=== PATIENT | female | born 1985 | race Caucasian/White ===

== ENCOUNTER 2020-01-30 06:24 | Inpatient (IN) | payer OTHER ==
[2020-01-30 06:48] LABS: Basophils % (A) 0 %; Eosinophils # (A) 0.1 k/uL (0-0.7); Eosinophils % (A) 2 %; HCT 40.1 % (34.0-46.0); HGB 13.7 gm/dL (11.4-16.0); Lymphocytes # (A) 1.5 k/uL (1.0-4.8); Lymphocytes % (A) 19 %; MCH 30.9 pg (25.0-35.0); MCHC 34.1 g/dL (31.0-37.0); MCV 90.6 fL (80.0-100.0); Mean Platelet Volume 7.9; Monocytes # (A) 0.3 k/uL (0-1.0); Monocytes % (A) 4 %; Neutrophils # (A) 5.8 k/uL (1.3-7.7); Neutrophils % (A) 74 %; Platelet Count 155 k/uL (150-450); RBC 4.43 m/uL (3.80-5.40); RDW 12.2 % (11.5-15.5); WBC 7.8 k/uL (3.8-10.6)
[2020-01-30] MEDS ORDERED: LORazepam 2 MG/ML INJ IV STA (06:55)
[2020-01-30 07:03] LABS: Amphetamine Screen,Urine Detected (NotDetected); Barbiturate Screen,Urine Not Detected (NotDetected); Benzodiazepines Screen,Urine Not Detected (NotDetected); Cocaine Screen,Urine Not Detected (NotDetected); Methadone Screen, Urine Not Detected (NotDetected); Opiate Screen,Urine Not Detected (NotDetected); Oxycodone Screen, Urine Not Detected (NotDetected); Phencyclidine Screen,Urine Not Detected (NotDetected); Tricyclic Antidepressant,Urine Not Detected (NotDetected); Urn Cannabinoid Scrn Not Detected (NotDetected)
[2020-01-30 07:04] LABS: Acetaminophen <10.0 ug/mL; African American GFR (CKD) >90 (>60 ml/min/1.73 sqM); Albumin 4.5 g/dL (3.5-5.0); Alcohol <10 mg/dL; Anion Gap 7 mmol/L; Calcium 8.9 mg/dL (8.4-10.2); Carbon Dioxide 26 mmol/L (22-30); Chloride 94 mmol/L (98-107); Glucose 98 mg/dL (74-99); Non-African American GFR(CKD) >90 (>60 ml/min/1.73 sqM); Salicylate <1.0 mg/dL; Sodium 127 mmol/L (137-145); Total Bilirubin 1.8 mg/dL (0.2-1.3); Total Protein 7.1 g/dL (6.3-8.2)
[2020-01-30 07:07] LABS: ALT 28 U/L (4-34); AST 50 U/L (14-36); Alkaline Phosphatase 52 U/L (38-126); Blood Urea Nitrogen 4 mg/dL (7-17)
--- NOTE | 2020-01-30 07:08 | ED ---
General Adult HPI <Gomez Thomas - Last Filed: 01/30/20 11:43> - General Source: patient, EMS Mode of arrival: EMS Limitations: altered mental status - History of Present Illness -: unknown Consistency: constant Improves with: none Worsens with: none Treatments Prior to Arrival: none <Jim Graham - Last Filed: 02/02/20 06:33> - General Chief complaint: Psychiatric Symptoms Stated complaint: Mental health Time Seen by Provider: 01/30/20 06:26 - History of Present Illness Initial comments: This patient is a 34-year-old woman who is brought by EMS to be evaluated for what she reportedly told him was bladder pain. When I see the patient, she is agitated and is not giving any history. The patient reportedly is staying at her mother's home here in town, but appears to live in [facility]. She comes in with a bag that contains multiple prescription bottles that are from [place]. (Jim Graham) - Related Data Home Medications Medication Instructions Recorded Confirmed ARIPiprazole [Abilify] 5 mg PO DAILY 01/30/20 01/30/20 Dextroamphetamine/Amphetamine 20 mg PO BID@0800,1200 01/30/20 01/30/20 [Adderall] Gabapentin [Neurontin] 900 mg PO HS 01/30/20 01/30/20 Levonorgestrel-Ethin Estradiol 1 tab PO DAILY 01/30/20 01/30/20 [Levora-28 Tablet] Levothyroxine Sodium [Synthroid] 75 mcg PO DAILY 01/30/20 01/30/20 OXcarbazepine [Trileptal] 300 mg PO BID 01/30/20 01/30/20 Zolpidem Tartrate [Ambien Cr] 12.5 mg PO HS 01/30/20 01/30/20 clonazePAM [KlonoPIN] 0.5 mg PO TID 01/30/20 01/30/20 Allergies Allergy/AdvReac Type Severity Reaction Status Date / Time bacitracin Allergy Itching Verified 01/30/20 18:27 [From Neosporin Plus] lidocaine Allergy Itching Verified 01/30/20 18:27 [From Neosporin Plus] neomycin Allergy Itching Verified 01/30/20 18:27 [From Neosporin Plus] polymyxin B Allergy Itching Verified 01/30/20 18:27 [From Neosporin Plus] pramoxine Allergy Itching Verified 01/30/20 18:27 [From Neosporin Plus] Review of Systems ROS Other: All systems not noted in ROS Statement are negative. <Gomez Thomas - Last Filed: 01/30/20 11:43> ROS Other: All systems not noted in ROS Statement are negative. Limitations: ROS unobtainable due to patients medical condition <NicolasJim rinaldi - Last Filed: 02/02/20 06:33> ROS Statement: Those systems with pertinent positive or pertinent negative responses have been documented in the HPI. Past Medical History Past Medical History: Unable to Obtain History of Any Multi-Drug Resistant Organisms: None Reported Past Surgical History: Unable to Obtain - Past Family History Father Family Medical History: No Reported History Mother Family Medical History: No Reported History <NicolasJim rinaldi - Last Filed: 02/02/20 06:33> General Exam Limitations: no limitations General appearance: alert, anxious Head exam: Present: atraumatic, normocephalic Eye exam: Present: normal appearance, PERRL, EOMI. Absent: scleral icterus, conjunctival injection ENT exam: Present: normal oropharynx Neck exam: Present: normal inspection, full ROM Respiratory exam: Present: normal lung sounds bilaterally. Absent: respiratory distress, wheezes, rales, rhonchi, stridor, chest wall tenderness Cardiovascular Exam: Present: regular rate, normal rhythm, normal heart sounds. Absent: systolic murmur, diastolic murmur, rubs, gallop GI/Abdominal exam: Present: soft, normal bowel sounds. Absent: distended, tenderness, guarding, rebound, mass, pulsatile mass, hernia Extremities exam: Present: normal inspection, normal capillary refill. Absent: pedal edema, calf tenderness Back exam: Present: normal inspection. Absent: CVA tenderness (R), CVA tenderness (L) Neurological exam: Present: alert, CN II-XII intact. Absent: motor sensory deficit Skin exam: Present: warm, dry, intact, normal color. Absent: rash <SantosJim - Last Filed: 02/02/20 06:33> Course <Gomez Thomas Catrachito - Last Filed: 01/30/20 11:43> Vital Signs 01/30/20 01/30/20 01/30/20 06:25 09:00 10:00 Temperature 97.6 F Pulse Rate 80 Respiratory 16 18 18 Rate Blood Pressure 103/79 O2 Sat by Pulse 100 Oximetry 01/30/20 01/30/20 01/30/20 11:00 11:26 12:00 Temperature 97.6 F Pulse Rate 61 61 Respiratory 18 18 18 Rate Blood Pressure 111/78 111/78 O2 Sat by Pulse 100 100 Oximetry - Reevaluation(s) Reevaluation #1: 01/30/20 09:17 Patient presents with suspected drug overdose, Tylenol overdose of approximately 5 g, Tylenol level is negative 2. Case was discussed with poison control. She did have some urinary retention likely secondary to amphetamine use. After initial dose of benzodiazepine, patient is alert, calm, cooperative. She does state this was a suicide attempt. She has been medically cleared at 0920 for EPS evaluation. (Gomez Thomas) EKG Findings - EKG Results: EKG: interpreted by DEEPTI COLLAZO, sinus rhythm (Rate 61 bpm), normal axis, normal QRS, normal ST/T, no acute changes <Jim Graham - Last Filed: 02/02/20 06:33> Medical Decision Making - Lab Data Result diagrams: 01/30/20 06:40 01/30/20 08:14 <Gomez Thomas - Last Filed: 01/30/20 11:43> - Lab Data Result diagrams: 01/31/20 10:51 01/31/20 10:51 <Jim Graham - Last Filed: 02/02/20 06:33> - Medical Decision Making 34-year-old with suicidal attempt, agitation, and amphetamine overdose. Patient states he does admit to suicidal attempt. She has been medically cleared with negative Tylenol 2. She was evaluated by EPS and felt to require inpatient psychiatric evaluation treatment. She will be admitted to this institution. I did complete a clinical certification on this patient. (Gomez Thomas) - Lab Data Lab Results 01/30/20 01/30/20 01/30/20 Range/Units 06:40 06:40 06:40 WBC 7.8 (3.8-10.6) k/uL RBC 4.43 (3.80-5.40) m/uL Hgb 13.7 (11.4-16.0) gm/dL Hct 40.1 (34.0-46.0) % MCV 90.6 (80.0-100.0) fL MCH 30.9 (25.0-35.0) pg MCHC 34.1 (31.0-37.0) g/dL RDW 12.2 (11.5-15.5) % Plt Count 155 (150-450) k/uL Neutrophils % 74 % Lymphocytes % 19 % Monocytes % 4 % Eosinophils % 2 % Basophils % 0 % Neutrophils # 5.8 (1.3-7.7) k/uL Lymphocytes # 1.5 (1.0-4.8) k/uL Monocytes # 0.3 (0-1.0) k/uL Eosinophils # 0.1 (0-0.7) k/uL Basophils # 0.0 (0-0.2) k/uL Sodium (137-145) mmol/L Potassium (3.5-5.1) mmol/L Chloride (98-107) mmol/L Carbon Dioxide (22-30) mmol/L Anion Gap mmol/L BUN (7-17) mg/dL Creatinine (0.52-1.04) mg/dL Est GFR (CKD-EPI)AfAm (>60 ml/min/1.73 sqM) Est GFR (CKD-EPI)NonAf (>60 ml/min/1.73 sqM) Glucose (74-99) mg/dL Calcium (8.4-10.2) mg/dL Total Bilirubin (0.2-1.3) mg/dL AST (14-36) U/L ALT (4-34) U/L Alkaline Phosphatase (38-126) U/L Total Protein (6.3-8.2) g/dL Albumin (3.5-5.0) g/dL Urine HCG, Qual Not Detected (Not Detectd) Salicylates mg/dL Urine Opiates Screen Not Detected (NotDetected) Ur Oxycodone Screen Not Detected (NotDetected) Urine Methadone Screen Not Detected (NotDetected) Ur Propoxyphene Screen Not Detected (NotDetected) Acetaminophen ug/mL Ur Barbiturates Screen Not Detected (NotDetected) U Tricyclic Antidepress Not Detected (NotDetected) Ur Phencyclidine Scrn Not Detected (NotDetected) Ur Amphetamines Screen Detected H (NotDetected) U Methamphetamines Scrn Not Detected (NotDetected) U Benzodiazepines Scrn Not Detected (NotDetected) Urine Cocaine Screen Not Detected (NotDetected) U Marijuana (THC) Screen Not Detected (NotDetected) Serum Alcohol mg/dL 01/30/20 01/30/20 Range/Units 06:40 08:14 WBC (3.8-10.6) k/uL RBC (3.80-5.40) m/uL Hgb (11.4-16.0) gm/dL Hct (34.0-46.0) % MCV (80.0-100.0) fL MCH (25.0-35.0) pg MCHC (31.0-37.0) g/dL RDW (11.5-15.5) % Plt Count (150-450) k/uL Neutrophils % % Lymphocytes % % Monocytes % % Eosinophils % % Basophils % % Neutrophils # (1.3-7.7) k/uL Lymphocytes # (1.0-4.8) k/uL Monocytes # (0-1.0) k/uL Eosinophils # (0-0.7) k/uL Basophils # (0-0.2) k/uL Sodium 127 L 130 L (137-145) mmol/L Potassium 6.0 H 4.0 (3.5-5.1) mmol/L Chloride 94 L 99 (98-107) mmol/L Carbon Dioxide 26 24 (22-30) mmol/L Anion Gap 7 7 mmol/L BUN 4 L 4 L (7-17) mg/dL Creatinine 0.44 L 0.43 L (0.52-1.04) mg/dL Est GFR (CKD-EPI)AfAm >90 >90 (>60 ml/min/1.73 sqM) Est GFR (CKD-EPI)NonAf >90 >90 (>60 ml/min/1.73 sqM) Glucose 98 92 (74-99) mg/dL Calcium 8.9 8.7 (8.4-10.2) mg/dL Total Bilirubin 1.8 H 0.8 (0.2-1.3) mg/dL AST 50 H 26 (14-36) U/L ALT 28 22 (4-34) U/L Alkaline Phosphatase 52 52 (38-126) U/L Total Protein 7.1 5.7 L (6.3-8.2) g/dL Albumin 4.5 3.6 (3.5-5.0) g/dL Urine HCG, Qual (Not Detectd) Salicylates <1.0 mg/dL Urine Opiates Screen (NotDetected) Ur Oxycodone Screen (NotDetected) Urine Methadone Screen (NotDetected) Ur Propoxyphene Screen (NotDetected) Acetaminophen <10.0 <10.0 ug/mL Ur Barbiturates Screen (NotDetected) U Tricyclic Antidepress (NotDetected) Ur Phencyclidine Scrn (NotDetected) Ur Amphetamines Screen (NotDetected) U Methamphetamines Scrn (NotDetected) U Benzodiazepines Scrn (NotDetected) Urine Cocaine Screen (NotDetected) U Marijuana (THC) Screen (NotDetected) Serum Alcohol <10 mg/dL Disposition Is patient prescribed a controlled substance at d/c from ED?: No Decision to Admit Reason: Admit from EC Decision Date: 01/30/20 Decision Time: 11:44 <Gomez Thomas - Last Filed: 01/30/20 11:43> Is patient prescribed a controlled substance at d/c from ED?: No <Jim Graham - Last Filed: 02/02/20 06:33> Clinical Impression: Suicidal ideation, Attempted suicide, Depression Disposition: ADMITTED IP TO THIS [facility] Condition: Stable
[2020-01-30] MEDS ORDERED: SODIUM CHLORIDE 0.9% 500 ML 500 ML IV ONE (07:18)
[2020-01-30 08:31] LABS: ALT 22 U/L (4-34); AST 26 U/L (14-36); Acetaminophen <10.0 ug/mL; African American GFR (CKD) >90 (>60 ml/min/1.73 sqM); Albumin 3.6 g/dL (3.5-5.0); Alkaline Phosphatase 52 U/L (38-126); Anion Gap 7 mmol/L; Blood Urea Nitrogen 4 mg/dL (7-17); Calcium 8.7 mg/dL (8.4-10.2); Carbon Dioxide 24 mmol/L (22-30); Chloride 99 mmol/L (98-107); Glucose 92 mg/dL (74-99); Non-African American GFR(CKD) >90 (>60 ml/min/1.73 sqM); Sodium 130 mmol/L (137-145); Total Bilirubin 0.8 mg/dL (0.2-1.3); Total Protein 5.7 g/dL (6.3-8.2)
[2020-01-30] MEDS: SODIUM CHLORIDE 0.9% 1,000 ML IV SCH (08:42)
[2020-01-30] MEDS ORDERED: ACETAMINOPHEN TAB 325 MG TAB PO PRN (11:51)
[2020-01-30] MEDS ORDERED: MAG HYDROX/AL HYDROX/SIMETH 30 ML CUP PO PRN (11:51)
[2020-01-30] MEDS ORDERED: LORazepam 1 MG TAB PO PRN (11:51)
[2020-01-30] MEDS ORDERED: MAGNESIUM HYDROXIDE 2,400 MG/10 ML CUP PO PRN (11:51)
[2020-01-30] MEDS ORDERED: LORazepam 2 MG/ML INJ IM PRN (11:54)
[2020-01-30] MEDS: GABAPENTIN 400 MG CAP PO SCH (13:43)
[2020-01-30] MEDS: OXcarbazepine 300 MG TAB PO SCH ×2 (13:43→20:40)
[2020-01-30] MEDS: OLANZapine 2.5 MG TAB PO SCH (13:44)
--- NOTE | 2020-01-30 18:43 | P.HPMEDMHU ---
History of Present Illness H&P Date: 01/30/20 Chief Complaint: confusion This is a 34-year-old female with a history of anxiety and hypothyroidism who has been admitted to the mental health unit for possible suicide attempt. Initially when seen in the ER the patient having complaining of bladder pain. Patient seen and examined. She denies any abdominal pain, nausea, vomiting, or dysuria. She denies any fevers or flus. She states that the psychiatrist wants to wean her off of her gabapentin and Klonopin. She is willing to do this. She is slightly nervous to take Zyprexa as it has caused suicidal ideation the past. Review of Systems Pertinent positives and negatives as discussed in HPI, a complete review of systems was performed and all other systems are negative. Past Medical History Past Medical History: Thyroid Disorder History of Any Multi-Drug Resistant Organisms: None Reported Additional Past Surgical History / Comment(s): Right lateral meniscus Past Psychological History: Anxiety Smoking Status: Never smoker Past Alcohol Use History: None Reported Past Drug Use History: None Reported - Past Family History Father Family Medical History: No Reported History Mother Family Medical History: No Reported History Medications and Allergies Home Medications Medication Instructions Recorded Confirmed Type ARIPiprazole [Abilify] 5 mg PO DAILY 01/30/20 01/30/20 History Dextroamphetamine/Amphetamine 20 mg PO BID@0800,1200 01/30/20 01/30/20 History [Adderall] Gabapentin [Neurontin] 900 mg PO HS 01/30/20 01/30/20 History Levonorgestrel-Ethin Estradiol 1 tab PO DAILY 01/30/20 01/30/20 History [Levora-28 Tablet] Levothyroxine Sodium [Synthroid] 75 mcg PO DAILY 01/30/20 01/30/20 History OXcarbazepine [Trileptal] 300 mg PO BID 01/30/20 01/30/20 History Zolpidem Tartrate [Ambien Cr] 12.5 mg PO HS 01/30/20 01/30/20 History clonazePAM [KlonoPIN] 0.5 mg PO TID 01/30/20 01/30/20 History Allergies Allergy/AdvReac Type Severity Reaction Status Date / Time bacitracin Allergy Itching Verified 01/30/20 18:27 [From Neosporin Plus] lidocaine Allergy Itching Verified 01/30/20 18:27 [From Neosporin Plus] neomycin Allergy Itching Verified 01/30/20 18:27 [From Neosporin Plus] polymyxin B Allergy Itching Verified 01/30/20 18:27 [From Neosporin Plus] pramoxine Allergy Itching Verified 01/30/20 18:27 [From Neosporin Plus] Physical Exam Osteopathic Statement: *. No significant issues noted on an osteopathic structural exam other than those noted in the History and Physical/Consult. Vitals: Vital Signs Temp Pulse Pulse Resp BP BP Pulse Ox 01/30/20 12:18 96.6 F L 89 16 127/72 100 01/30/20 12:00 97.6 F 61 18 111/78 100 01/30/20 11:26 61 18 111/78 100 01/30/20 11:00 18 01/30/20 10:00 18 01/30/20 09:00 18 01/30/20 06:25 97.6 F 80 16 103/79 100 Intake and Output 01/30/20 01/30/20 01/30/20 06:59 14:59 22:59 Output Total 697 Balance -697 Output: Post Void Residual 697 Other: Weight 77.111 kg General: non toxic, no distress, appears at stated Derm: warm, dry Head: atraumatic, normocephalic, symmetric Eyes: EOMI, no lid lag, anicteric sclera, pupils equal round reactive to light ENT: Nose and ears atraumatic, no thrush, no pharyngeal erythema Neck: No thyromegaly, no cervical lymphadenopathy, trachea midline, supple Mouth: no lip lesion, mucus membranes moist Cardiovascular: S1S2 reg, no murmur, positive posterior tibial pulse bilateral, no edema, capillary refill less than 2 seconds Lungs: clear to ascultation bilateral, no ronchi, no rales, no wheeze, no accessory muscle use Abdominal: soft, nontender to palpation, no guarding, no appreciable organomegaly, normal bowel sounds Ext: no gross muscle atrophy, muscle strength muscle strength 5 out of 5 in all 4 extremities, no contractures Neuro: CN II-XII grossly intact, light touch intact all 4 extremities, finger to nose within normal limits, Psych: Alert, oriented, flat affect slowed thinking Cranial Nerve Examination - Cranial Nerves Cranial Nerve II- Optic: Intact Cranial Nerve III- Oculomotor: Intact Cranial Nerve IV- Trochlear: Intact Cranial Nerve V- Trigeminal: Intact Cranial Nerve - Abducens: Intact Cranial Nerve VII- Facial: Intact Cranial Nerve VIII- Auditory: Intact Cranial Nerve IX- Glossopharyngeal: Intact Cranial Nerve X- Vagus: Intact Cranial Nerve XI- Accessory: Intact Cranial Nerve XII- Hypoglossal: Intact Results CBC & Chem 7: 01/30/20 06:40 01/30/20 08:14 Labs: Abnormal Lab Results - Last 24 Hours (Table) 01/30/20 01/30/20 01/30/20 Range/Units 06:40 06:40 08:14 Sodium 127 L 130 L (137-145) mmol/L Potassium 6.0 H (3.5-5.1) mmol/L Chloride 94 L (98-107) mmol/L BUN 4 L 4 L (7-17) mg/dL Creatinine 0.44 L 0.43 L (0.52-1.04) mg/dL Total Bilirubin 1.8 H (0.2-1.3) mg/dL AST 50 H (14-36) U/L Total Protein 5.7 L (6.3-8.2) g/dL Ur Amphetamines Screen Detected H (NotDetected) Assessment and Plan Assessment: Hypothyroidism - Synthroid - Recheck TSH Hyponatremia - encourage oral intake - repeat BMP in AM Hyperkalemia - resolved Depression - your psych management Thank you for allowing us to participate in the care of this pleasant patient. Do not hesitate to contact us with questions. Someone can be reached from the [facility] hospitalist group all hours of the day at [phone] or via perfect serve.
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
[2020-01-30] MEDS: OLANZapine 5 MG TAB PO SCH (20:40)
[2020-01-30] MEDS ORDERED: ZOLPIDEM 5 MG TAB PO PRN (21:00)
[2020-01-30] MEDS ORDERED: OXcarbazepine 300 MG TAB PO SCH (21:00)
[2020-01-31] MEDS: LEVOTHYROXINE 75 MCG TAB PO SCH (07:00)
[2020-01-31] MEDS: SODIUM CHLORIDE 0.9% 1,000 ML IV SCH (07:21)
[2020-01-31] MEDS: OLANZapine 2.5 MG TAB PO SCH ×2 (09:16→14:44)
[2020-01-31] MEDS: OXcarbazepine 300 MG TAB PO SCH ×2 (09:16→20:44)
[2020-01-31] MEDS: GABAPENTIN 400 MG CAP PO SCH (09:16)
[2020-01-31] MEDS: LEVONORGESTREL ETHIN ESTRADIOL PO SCH (09:41)
[2020-01-31 11:18] LABS: Basophils % (A) 1 %; Eosinophils # (A) 0.1 k/uL (0-0.7); Eosinophils % (A) 1 %; HCT 44.1 % (34.0-46.0); HGB 14.1 gm/dL (11.4-16.0); Lymphocytes # (A) 1.5 k/uL (1.0-4.8); Lymphocytes % (A) 20 %; MCH 30.3 pg (25.0-35.0); MCV 94.7 fL (80.0-100.0); Mean Platelet Volume 7.2; Monocytes # (A) 0.4 k/uL (0-1.0); Monocytes % (A) 5 %; Neutrophils # (A) 5.2 k/uL (1.3-7.7); Neutrophils % (A) 72 %; Platelet Count 179 k/uL (150-450); RBC 4.66 m/uL (3.80-5.40); RDW 12.5 % (11.5-15.5); WBC 7.2 k/uL (3.8-10.6)
[2020-01-31 11:28] LABS: Sodium 135 mmol/L (137-145)
[2020-01-31 11:29] LABS: ALT 24 U/L (4-34); AST 27 U/L (14-36); African American GFR (CKD) >90 (>60 ml/min/1.73 sqM); Albumin 3.9 g/dL (3.5-5.0); Alkaline Phosphatase 61 U/L (38-126); Anion Gap 5 mmol/L; Blood Urea Nitrogen 12 mg/dL (7-17); Calcium 8.9 mg/dL (8.4-10.2); Carbon Dioxide 29 mmol/L (22-30); Chloride 101 mmol/L (98-107); Cholesterol 142 mg/dL (<200); Glucose 78 mg/dL (74-99); HDL Cholesterol 68 mg/dL (40-60); LDL Cholesterol,Calculated 63 mg/dL (0-99); Non-African American GFR(CKD) >90 (>60 ml/min/1.73 sqM); Potassium 4.2 mmol/L (3.5-5.1); Total Bilirubin 0.5 mg/dL (0.2-1.3); Total Protein 6.1 g/dL (6.3-8.2); Triglycerides 53 mg/dL (<150)
--- NOTE | 2020-01-31 11:56 | PN ---
PROGRESS NOTE DATE OF SERVICE: 01/31/2020. CHIEF COMPLAINT: The patient felt "overwhelmed" with family stress issues. She has had traumatic experiences, which continued to plague her. She reported overdosing on 8-10 Tylenol. INTERVAL HISTORY: Patient has been doing fair. She had a quiet evening last night. She comes out in the day area. She will wander around. She did attend a group yesterday. She will interact some with others, though mostly she keeps to herself. She says she says she slept well last night. Today she has been up. She complains of a fair amount of anxiety and some confusion in her thinking. Its noteworthy that today she said she did not overdose on any Tylenol. She noted her blood level for Tylenol was not elevated. She said when she arrived at the ED, they understood her as having overdosed. She seemed to offer the idea that her mother believed she had overdosed as the reason mother called EMS. On the other hand, the patient was not able to offer anymore information about this issue or factors relating to her admission. She relates that all to a lot of family stress, though she really does not clarify what the issues are. She does note that her mother and brother have traveled from [place] to [place] to visit the maternal grandpa. Her maternal grandmother had been here for 2 weeks. The plan was for the family to return to [place]. She says that she has been calling her mother and has not gotten answers so she feels even confused about whether the mother and brother still in town or whether they have left. She also has had a lot of sense of confusion about treatment. She says she worries about her Zyprexa, though she acknowledges that she thinks it has been helping her. She has been cooperative with care. She has a moderate amount of anxiety in tends to have difficulty keeping her thoughts straight. She tolerates her psychotropic medications. MENTAL STATUS: Patient was moderately restless. She gave fairly good eye contact. She answered questions with brief responses. She tended to be quite circular and would ask questions over and over. One example was that she was allowed to sign in voluntarily though she probably asked 5-10 times if she had to go to court or not. Generally she could be brought on track to follow the conversation. Her affect was anxious. She was moderately depressed. She was significantly distressed. There was no indication of thought disorder. She voiced no thoughts of harm. Cognition was clear. ASSESSMENT: I will continue the current diagnosis and treatment plan. I had an extensive discussion with the patient regarding withdrawal issues. We will continue to focus on just using the Zyprexa as needed to help ameliorate early withdrawal symptoms. I discussed that longer-term issues regarding anxiety and mood problems need to be deferred at least beyond 6 weeks. Also any stress issues she is feeling related to family stuff are not likely to be addressed for her in terms of any kind of therapy intervention until her thinking process is clear from early withdrawal. I indicated to the patient that any of the problems that she is experiencing right now would be attributed to withdrawal issues and not longer-term factors. I will have the patient sign in voluntarily. We will focus on stabilization and discharge planning. JULIAN / RACQUEL: [id number] / [id number]
[2020-01-31] MEDS: OLANZapine 5 MG TAB PO SCH (20:44)
[2020-02-01] MEDS: LEVOTHYROXINE 75 MCG TAB PO SCH ×2 (06:44→09:40)
[2020-02-01 09:09] LABS: Hemoglobin A1C 5.1 % (4.0-6.0)
[2020-02-01] MEDS: LEVONORGESTREL ETHIN ESTRADIOL PO SCH (09:40)
[2020-02-01] MEDS: OLANZapine 2.5 MG TAB PO SCH (09:40)
[2020-02-01] MEDS: OXcarbazepine 300 MG TAB PO SCH ×2 (09:40→20:00)
[2020-02-01] MEDS: GABAPENTIN 400 MG CAP PO SCH (09:40)
[2020-02-01] MEDS ORDERED: OLANZapine 2.5 MG TAB PO ONE (10:00)
--- NOTE | 2020-02-01 10:31 | PN ---
PROGRESS NOTE DATE OF SERVICE: 02/01/2020 CHIEF COMPLAINT: The patient felt "overwhelmed" with family stress issues. She has had traumatic experiences which continue to plague her. She reported overdosing on 8-10 Tylenol. INTERVAL HISTORY: Patient had a quiet evening last night, mostly she stayed in her room. She does not interact much with others. She will come out in the day area and wander about though she does not seem to pay too much attention to things going on around her. She did attend groups yesterday and seemed to do fair with that. She did not say much. She tended to speak with a soft voice. At times she appeared somewhat disorganized. On the other hand, she was able to stay through the whole group. She slept fairly well last night. Today she has continued to be in her bed. She came out for medications. When I saw her this morning, she seemed to be in a very disheveled state. She barely said anything at all. She became tearful a few different times during the interview. She did not appear to be able to organized her thoughts. She acknowledged some feelings of stress, though could not say anything about that. She appears to tolerate her Zyprexa as her primary medication for managing early withdrawal symptoms. MENTAL STATUS: Patient sat with an essentially frozen posture. She did not give any eye contact. There were a few times that she would appear to try to verbalize, though did not seem to be able to get the words out. She answered a few questions with one-word responses, though barely said much at all. At times she would give a little eye contact and have a very distressed look on her face. She walked very slowly. Her affect was constricted. She had a bewildered manner. She was significantly depressed and distressed. It was difficult to assess for thought disorder. It was difficult to assess for thoughts of harm. ASSESSMENT: I will continue the current diagnosis and treatment plan. I will increase Zyprexa to 5 mg 3 times a day. The best I was able to clarify with the patient was that she was not having trouble with sedation with Zyprexa. In regard to sedation, she did seem to be functioning a little better last evening, though is more regressed today. I again reviewed issues relating to withdrawal, which is her primary issue at present. We will continue to focus on stabilization and discharge planning. MMODL / IJN: [id number] /
[2020-02-01] MEDS: OLANZapine 5 MG TAB PO SCH ×2 (16:41→22:02)
[2020-02-01] MEDS: traZODone HCL 50 MG TAB PO SCH ×2 (20:00→20:03)
[2020-02-02] MEDS: LEVOTHYROXINE 75 MCG TAB PO SCH (08:48)
[2020-02-02] MEDS: OLANZapine 5 MG TAB PO SCH (08:48)
[2020-02-02] MEDS: OXcarbazepine 300 MG TAB PO SCH ×2 (08:48→20:25)
[2020-02-02] MEDS: GABAPENTIN 400 MG CAP PO SCH (08:48)
[2020-02-02] MEDS: LEVONORGESTREL ETHIN ESTRADIOL PO SCH (08:49)
[2020-02-02] MEDS ORDERED: OLANZapine 5 MG TAB PO ONE (12:30)
[2020-02-02 13:28] LABS: C. trachomatis,PCR Negative (Neg,Equiv); Chlamydia trachomatis Source Urine; N. gonorrhoeae,PCR Negative (Neg,Equiv); Neisseria Source Urine
--- NOTE | 2020-02-02 15:19 | PN ---
PROGRESS NOTE DATE OF SERVICE: 02/02/2020. CHIEF COMPLAINT: The patient felt "overwhelmed" with family stress issues. She has had traumatic experiences, which continued to plague her. She reported overdosing on 8-10 Tylenol. INTERVAL HISTORY: Patient had a quiet evening last night, mostly she isolated. She does not interact much with others. She stayed in her room a fair amount. She attended 2 groups yesterday. In the 1st group, it was noted that she was withdrawn and showing a blunted response. In the afternoon group, she did verbalize some though continued with a bland affect. She comes out in the day area some, though does not interact with others. She slept 6 hours last night by staff nursing observation. When I asked the patient how she slept, she said she did not sleep, though then was unclear when I noted what the nurses had documented. She declined taking Zyprexa last evening which she seemed to relate to having some paranoid thinking and needing to see the package prior to taking any medication. She did make comments she "felt voices in her body." Today she has mostly been in her room, it is noteworthy that later the morning she was seen by staff and made an indication that she had thoughts of suicide. She says she wanted to harm herself, though could not figure out the means. The patient was unable to verbalize anymore about what her thinking was. She was placed on one-to-one. When I saw the patient, she was not able to say much. Mostly, she seemed to be in a fog. She would make an effort to speak though then would seem to not be able to get words out. She did not communicate anything that was reliable or helpful in terms of assessing her situation. When I asked her about voices, she did seem to indicate she has was having voices currently. She was not able to respond when I asked if she was having auditory hallucinations just prior to coming into the hospital or when she was 1st evaluated in the hospital. She was vague about that. She was also vague about whether or not she had been experiencing hallucinations over the last several weeks or months leading up to her hospitalization. She was able to say that her problems became severe started in August, though again she could not provide any details. She tolerates her psychotropic medications. MENTAL STATUS: Patient sat without restlessness. Eye contact was fair. Psychomotor activity was slowed. Speech was monotone. There was latency in her responses. She had much difficulty even getting any words out. Her affect was flat. She had a bewildered manner. Her mood was depressed. She was significantly distressed. She was reporting auditory hallucinations. She appears to have significant thought blocking. She did make statements about current thoughts that she would harm herself. ASSESSMENT: I will continue the current diagnosis and treatment plan. I will increase Zyprexa to 10 mg 3 times a day. Initial treatment has been focused on managing withdrawal symptoms from Ambien, Klonopin and Adderall. She does appear to be presenting with psychotic symptoms as well. It is noted that in her presentation on admission, she did have significant communication difficulties, which may have been a reflection of underlying thought disorder as well. We will focus on stabilization and discharge planning. JULIAN / RACQUEL: [id number] /
[2020-02-02] MEDS: OLANZapine 10 MG TAB PO SCH ×2 (16:49→21:20)
[2020-02-02] MEDS: traZODone HCL 50 MG TAB PO SCH (20:24)
[2020-02-03] MEDS: LEVONORGESTREL ETHIN ESTRADIOL PO SCH (08:39)
[2020-02-03] MEDS: LEVOTHYROXINE 75 MCG TAB PO SCH (08:39)
[2020-02-03] MEDS: OLANZapine 10 MG TAB PO SCH (08:39)
[2020-02-03] MEDS: GABAPENTIN 400 MG CAP PO SCH (08:39)
[2020-02-03] MEDS: OXcarbazepine 300 MG TAB PO SCH ×2 (08:40→20:59)
[2020-02-03] MEDS ORDERED: traZODone HCL 50 MG TAB PO PRN (13:45)
--- NOTE | 2020-02-03 13:50 | P.PN ---
Progress Note - Text Progress Note Date: 02/03/20 Interval History: Patient was seen with her one-to-one sitter at the bedside and patient was lay ing down in her bed sheets covering her entire body. Patient was approached by typewriter assembly and parts inspector to speak with him in the office however patient refused to wake up and follow typewriter assembly and parts inspector's command. Patientb was nonverbal with typewriter assembly and parts inspector today and according to sitter claims that patient did not say anything today. Patient was not following any commands however looked at typewriter assembly and parts inspector and then turned away and closed her eyes. Mental Status Exam: General Appearance: Patient appears to be stated age is alert, difficult to redirect and uncooperative. Patient was lying down in the bed. Behavior: Patient is calmly laying in bed without any agitated behavior. Speech: Nonverbal Mood/Affect: Nonverbal Suicidality/Homicidality: Nonverbal Perceptions: Unable to assess Though content/process: Unable to assess Memory and concentration: Unable to assess Judgment and insight: Poor Assessment Major depressive disorder Benzodiazepine dependence PTSD Plan: -Patient continues to meet criteria for inpatient psychiatric admission for symptom stabilization and safety. Patient is currently on a petition and certification and awaiting deferral and court date.. -Medications: Decrease Zyprexa to 10 mg daily at bedtime for mood stabilization/insomnia, continue with Trileptal 300 mg twice a day for mood stabilization, decrease trazodone to 50 mg when necessary daily at bedtime. -When necessary Ativan and Geodon for agitation/aggression. -NRT -not needed as patient does not smoke. -SW on board for discharge planning. Encouraged the patient to participate in milieu. Will continue with one-to-one sitter for safety and consider discontinuing tomorrow.
[2020-02-03] MEDS ORDERED: OLANZapine 10 MG TAB PO SCH (21:00)
[2020-02-03] MEDS: ZIPRASIDONE 20 MG VIAL IM PRN (23:05)
[2020-02-04] MEDS: LEVOTHYROXINE 75 MCG TAB PO SCH (08:38)
[2020-02-04] MEDS: LEVONORGESTREL ETHIN ESTRADIOL PO SCH (08:39)
[2020-02-04] MEDS: OXcarbazepine 300 MG TAB PO SCH ×2 (08:39→19:33)
[2020-02-04] MEDS: GABAPENTIN 400 MG CAP PO SCH (08:39)
[2020-02-04] MEDS ORDERED: traZODone HCL 100 MG TAB PO PRN (11:53)
--- NOTE | 2020-02-04 11:53 | P.PN ---
Progress Note - Text Progress Note Date: 02/04/20 Interval History: Patient was seen laying down on her bed this morning with her one-to-one sitter at the bedside. Patient was approached today by com writer and awoken from her sleep and patient slowly turned to com writer and acknowledged him and was directable to speak with com writer in the office. Patient had poor eye contact and poor hygiene and grooming and answered minimal questions today. She repetitively combed her hair back during the encounter. She sat quietly with no bizarre behaviors. Patient did not offer any complaints today. She states that she slept fine and denies any problems with her appetite. When asked about suicidal or homicidal ideations patient did not answer com writer and also did not answer when com writer asked about patient's medications and also any auditory or visual hallucinations. Patient has been taking her medications while on the unit. Mental Status Exam: General Appearance: Patient appears to be stated age is alert, difficult to redirect and uncooperative, improving mildly. Patient appeared to have a disheveled appearance. Behavior: Patient is calmly sitting in the chair without any agitated behavior. Speech: [place], fluent. Mood/Affect: Patient states her mood is "okay", affect is congruent and constricted. Suicidality/Homicidality: Unable to assess Perceptions: Unable to assess Though content/process: [place], logical, poverty of content. Memory and concentration: Unable to assess Judgment and insight: Poor Assessment Major depressive disorder severe, with psychotic features Benzodiazepine dependence PTSD Plan: -Patient continues to meet criteria for inpatient psychiatric admission for symptom stabilization and safety. Patient is currently on a petition and certification and awaiting deferral and court date.. -Medications: Decrease Zyprexa to 5 mg daily at bedtime for mood stabilization/insomnia and cross titration to commence with Prolixin by mouth 2.5 mg twice a day for psychosis/mood stabilization, continue with Trileptal 300 mg twice a day for mood stabilization, increased trazodone to 100 mg when necessary daily at bedtime. -When necessary Ativan and Geodon for agitation/aggression. -NRT -not needed as patient does not smoke. -SW on board for discharge planning. Encouraged the patient to participate in milieu. Will continue with one-to-one sitter for safety and consider discontinuing tomorrow. icebox worker to continue working with patient to sign release of information to contact patient's family for collateral history.
[2020-02-04] MEDS: ZIPRASIDONE 20 MG VIAL IM PRN (17:53)
[2020-02-04] MEDS ORDERED: OLANZapine 5 MG TAB PO SCH (21:00)
[2020-02-05] MEDS: diphenhydrAMINE 50 MG CAP PO ONE ×2 (01:21→01:52)
[2020-02-05] MEDS: ZIPRASIDONE 20 MG VIAL IM PRN (04:46)
[2020-02-05] MEDS ORDERED: LORazepam 2 MG/ML INJ IM STA (04:54)
[2020-02-05 08:48] LABS: African American GFR (CKD) >90 (>60 ml/min/1.73 sqM); Anion Gap 8 mmol/L; Blood Urea Nitrogen 9 mg/dL (7-17); Calcium 8.9 mg/dL (8.4-10.2); Carbon Dioxide 25 mmol/L (22-30); Chloride 100 mmol/L (98-107); Glucose 86 mg/dL (74-99); Non-African American GFR(CKD) >90 (>60 ml/min/1.73 sqM); Potassium 3.6 mmol/L (3.5-5.1); Sodium 133 mmol/L (137-145)
[2020-02-05] MEDS: GABAPENTIN 400 MG CAP PO SCH (08:53)
[2020-02-05] MEDS: LEVONORGESTREL ETHIN ESTRADIOL PO SCH (08:53)
[2020-02-05] MEDS: OXcarbazepine 300 MG TAB PO SCH ×2 (08:53→20:36)
[2020-02-05] MEDS: LEVOTHYROXINE 75 MCG TAB PO SCH (08:53)
[2020-02-05] MEDS ORDERED: LORazepam 2 MG/ML INJ IM PRN (10:45)
--- NOTE | 2020-02-05 11:23 | P.PN ---
Progress Note - Text Progress Note Date: 02/05/20 Interval History: Patient was seen laying down on her bed this morning with her one-to-one sitter at the bedside. Patient turned to senior grant writer when senior grant writer approached her to speak with her however patient turned away and appeared to be disinterested in speaking with senior grant writer. Rawhide Trimmer asked several questions to patient however patient did not reply to any of them and simply looked at him and then turned away. Patient has been taking her medications while on the unit. According to nursing report patient was agitated and appeared to be "sticking her tongue out" repetitively last night and had a difficult time falling asleep and said that she was suicidal last night. Patient required several when necessary medications Mental Status Exam: General Appearance: Patient appears to be stated age is lethargic, difficult to redirect and uncooperative. Patient appeared to have a disheveled appearance. Behavior: Patient is calmly laying in bed without any agitated behavior. Disinterested. Speech: Nonverbal today Mood/Affect: Unable to assess Suicidality/Homicidality: Unable to assess Perceptions: Unable to assess Though content/process: Unable to assess Memory and concentration: Unable to assess Judgment and insight: Poor Assessment Major depressive disorder severe, with psychotic features Benzodiazepine dependence PTSD Plan: -Patient continues to meet criteria for inpatient psychiatric admission for symptom stabilization and safety. Patient is currently on a petition and certification and awaiting deferral and court date.. -Medications: Increased Zyprexa to 7.5 mg daily at bedtime for mood stabilization/insomnia. Increased Prolixin by mouth 3 mg twice a day for psychosis/mood stabilization, continue with Trileptal 300 mg twice a day for mood stabilization, continue with trazodone to 100 mg when necessary daily at bedtime. Added Cogentin 0.5 mg twice a day for EPS prophylaxis. -When necessary Ativan and Geodon for agitation/aggression. -NRT -not needed as patient does not smoke. -SW on board for discharge planning. Encouraged the patient to participate in milieu. Will continue with one-to-one sitter for safety. merchandise worker was able to obtain release of information from patient to speak with her mother and her grandmother and will attempt today to obtain collateral information.
[2020-02-05] MEDS: BENZTROPINE MESYLATE 0.5 MG TAB PO SCH (20:35)
[2020-02-05] MEDS: OLANZapine 2.5 MG TAB PO SCH (20:36)
[2020-02-06] MEDS: LEVONORGESTREL ETHIN ESTRADIOL PO SCH (08:22)
[2020-02-06] MEDS: GABAPENTIN 400 MG CAP PO SCH (08:24)
[2020-02-06] MEDS: OXcarbazepine 300 MG TAB PO SCH ×2 (08:24→20:53)
[2020-02-06] MEDS: LEVOTHYROXINE 75 MCG TAB PO SCH (08:24)
[2020-02-06] MEDS: BENZTROPINE MESYLATE 0.5 MG TAB PO SCH ×2 (08:24→20:54)
--- NOTE | 2020-02-06 12:17 | P.PN ---
Subjective Progress Note Date: 02/06/20 Principal diagnosis: Major depressive disorder severe with psychotic features Benzodiazepine dependence PTSD Subjective no, no, no, Objective patient gives one-word response to everything. No eye contact very little psychomotor activity lying in bed at noon in a dark room Medication we increased Zyprexa to seventh 0.5 daily at bedtime and Prolixin 3 mg twice a day she is also on Trileptal 300 twice a day and trazodone 100 at night plus Cogentin for EPS 0.5 twice a day Vital signs heart rate 65 respiration 18 blood pressure 125/68 Labs: She did have a general chemistry yesterday tends to run low on her sodium is at 133 which for her is group home okay Groups: The patient does not attend I urged her to go to groups so that we could see how she is doing associated fight back against her illness. Staff reported that patient always seems sad does take care of her basic hygiene anxious guarded low energy denies psychotic symptoms denies suicidality or homicidality is withdrawn from peers and staff Assessment patient continues to require hospitalization for safety and medication adjustment we will continue the current medication is Zyprexa 7.5 Prolixin Trileptal and trazodone and when necessary's work with the social workers for discharge planning and strongly encourage patient to participate in the milieu Objective - Vital Signs Vital signs: Vital Signs Temp 97.5 F L 02/04/20 21:07 Pulse 65 02/06/20 06:38 Resp 18 02/06/20 06:38 BP 125/68 02/06/20 06:38 Pulse Ox 97 02/05/20 05:13 - Labs CBC & Chem 7: 01/31/20 10:51 02/05/20 06:29
[2020-02-06 14:18] VITALS: BMI 23.7
[2020-02-06] MEDS: OLANZapine 2.5 MG TAB PO SCH (20:53)
--- NOTE | 2020-02-07 08:29 | P.PN ---
Subjective Progress Note Date: 02/07/20 Principal diagnosis: Major depressive disorder severe with psychotic features Benzodiazepine dependence PTSD Subjective: The patient did a little better than yesterday giving me several word answers although brief. She said she slept okay and kind of shrugged her shoulders the staff since that she slept at least 7 hours says her appetite is okay and that her anxiety is slowly coming down. She denies any hallucinations or delusions and says that she still feels sad and wonders what the point of life is but has no plan. Objective patient has very little psychomotor activity poor eye contact moves slowly no evidence of psychotic responses she is not tearful just sad affect no irritability or anger Vital signs: Temperature 97.9 heart rate 68 respirations 16 blood pressure 118/76 Labs were run on the nothing new since then Medications: The patient takes Neurontin 400 a day, Trileptal 300 twice a day, Cogentin 0.5 twice a day which she says is working she does not have stiffness, Prolixin 3 mg twice a day and olanzapine 7. 5 at night Assessment patient is still needs to be in the hospital is she is depressed cannot commit to safety and is too anxious to function and also needs to have medications adjusted and monitored Plan: No change in medicine Objective - Vital Signs Vital signs: Vital Signs Temp 97.9 F 02/07/20 06:31 Pulse 68 02/07/20 06:31 Resp 16 02/07/20 06:31 BP 118/76 02/07/20 06:31 Pulse Ox 97 02/07/20 06:31 Intake & Output 02/06/20 02/07/20 02/07/20 18:59 06:59 18:59 Weight 75 kg - Labs CBC & Chem 7: 01/31/20 10:51 02/05/20 06:29
[2020-02-07] MEDS: LEVONORGESTREL ETHIN ESTRADIOL PO SCH (08:36)
[2020-02-07] MEDS: OXcarbazepine 300 MG TAB PO SCH ×2 (08:38→21:04)
[2020-02-07] MEDS: BENZTROPINE MESYLATE 0.5 MG TAB PO SCH ×2 (08:38→21:05)
[2020-02-07] MEDS: LEVOTHYROXINE 75 MCG TAB PO SCH (08:38)
[2020-02-07] MEDS: GABAPENTIN 400 MG CAP PO SCH (08:38)
[2020-02-07] MEDS: OLANZapine 2.5 MG TAB PO SCH (21:04)
[2020-02-08] MEDS: BENZTROPINE MESYLATE 0.5 MG TAB PO SCH ×2 (08:14→20:19)
[2020-02-08] MEDS: LEVOTHYROXINE 75 MCG TAB PO SCH (08:14)
[2020-02-08] MEDS: OXcarbazepine 300 MG TAB PO SCH ×2 (08:14→20:18)
[2020-02-08] MEDS: GABAPENTIN 400 MG CAP PO SCH (08:15)
[2020-02-08] MEDS: LEVONORGESTREL ETHIN ESTRADIOL PO SCH (08:15)
--- NOTE | 2020-02-08 11:56 | P.PN ---
Progress Note - Text Progress Note Date: 02/08/20 Interval History: Patient was seen laying down in her bed today with her sitter at the bedside and was directable and agreeable to seek to insurance underwriter sales in the office today. She appears to have poor hygiene still with poor grooming however appeared to be more awake today and less lethargic. She continues to be concrete and have poverty of content. She was asking about potential discharge today however was agreeable to stay longer on the unit. She claims that she did speak with her mother and father over the phone. When asked more about the circumstances of her hospitalization patient continues to state "I don't know what happened" and does not know how long she will be in the area for. She claims that her mood has been gradually improving and denies any anxiety at this time. She states that she was able to go to some groups throughout the weekend. She claims of a fair appetite. At this time patient denies any suicidal or homical ideations, intent or plan. Patient denies any auditory, visual hallucinations. Patient denies any side effects from the medications and has been compliant with meds. Mental Status Exam: General Appearance: Patient appears to be older than stated age is alert, directable, and attempts to becooperative.continues to have poor hygiene and grooming. Behavior: Patient is calmly seated without any agitated behavior. Speech: Patient's speech is fluent and nonpressured. monotone and concrete. Mood/Affect: Mood is improving mildly, affect is congruent and constricted. Suicidality/Homicidality: Patient denies having any suicidal or homicidal ideation intent or plan. Perceptions: Patient denies any visual hallucinations and denies any auditory hallucinations Though content/process: concrete, poverty of content. Logical today. Memory and concentration: AOX3, grossly intact for the purposes of this session Judgment and insight: poor, Improving mildly Assessment Major depressive disorder severe, with psychotic features Benzodiazepine dependence PTSD Plan: -Patient continues to meet criteria for inpatient psychiatric admission for symptom stabilization and safety. Patient is currently voluntary. -Medications: continue with Zyprexa to 7.5 mg daily at bedtime for mood stabilization/insomnia. Increased Prolixin by mouth 4 mg twice a day for psychosis/mood stabilization, continue with Trileptal 300 mg twice a day for mood stabilization, continue with trazodone to 100 mg when necessary daily at bedtime. continue with Cogentin 0.5 mg twice a day for EPS prophylaxis. -When necessary Ativan and Geodon for agitation/aggression. -NRT -not needed as patient does not smoke. -SW on board for discharge planning. Encouraged the patient to participate in milieu. sitter can be discontinued at this time as she has not have any aacute behavioral concerns regarding self-harm and will continue to monitor patient's condition. print finishing worker was able to obtain release of information from patient to speak with her mother and her grandmother and will attempt today to obtain collateral information. likely discharge in 2-3 days.
[2020-02-08] MEDS: OLANZapine 2.5 MG TAB PO SCH (20:18)
[2020-02-09 06:40] VITALS: BP 107/66; PULSE 78; RESP 16
[2020-02-09] MEDS: LEVOTHYROXINE 75 MCG TAB PO SCH (08:13)
[2020-02-09] MEDS: GABAPENTIN 400 MG CAP PO SCH (08:13)
[2020-02-09] MEDS: BENZTROPINE MESYLATE 0.5 MG TAB PO SCH ×2 (08:13→20:44)
[2020-02-09] MEDS: OXcarbazepine 300 MG TAB PO SCH ×2 (08:13→20:44)
[2020-02-09] MEDS: LEVONORGESTREL ETHIN ESTRADIOL PO SCH (08:15)
--- NOTE | 2020-02-09 09:54 | P.PN ---
Progress Note - Text Progress Note Date: 02/09/20 Interval History: Patient was seen laying down in her bed today and was directable and agreeable to seek to policy writer typist in the office today. She appears to have mildly improved hygiene and improving grooming. She continues to be concrete and have poverty of content however today this has been mildly improving and patient was more interactive with the policy writer typist. She continues to state that she has been trying to speak with her parents over the phone for the past 2 days and claims that they are waiting to get back with the social sciences chair. She claims that she was on "different medications" prior to coming into the hospital and listed off Abilify and Klonopin states that she was receiving these from her primary care physician. Patient did not have any issues at all with her medications however has superficial insight. Drywall Boardhanger spoke with patient about potential long-acting injection however patient states that she would like to think about it. She claims that her mood has been gradually improving and denies any anxiety at this time. She claims that she was able to sleep throughout the night. She states that she was able to go to some groups yesterday and spoke vaguely about their topics. She claims of a fair appetite. At this time patient denies any suicidal or homical ideations, intent or plan. Patient denies any auditory, visual hallucinations. Patient denies any side effects from the medications and has been compliant with meds. Mental Status Exam: General Appearance: Patient appears to be older than stated age is alert, directable, and attempts to be more cooperative today, improving hygiene and grooming. Behavior: Patient is calmly seated without any agitated behavior. Speech: Patient's speech is fluent and nonpressured. monotone and concrete. Mood/Affect: Mood is improving mildly, affect is congruent and constricted. Suicidality/Homicidality: Patient denies having any suicidal or homicidal ideation intent or plan. Perceptions: Patient denies any visual hallucinations and denies any auditory hallucinations Though content/process: concrete, poverty of content. Logical today. Memory and concentration: AOX3, grossly intact for the purposes of this session Judgment and insight: poor, Improving mildly Assessment Major depressive disorder severe, with psychotic features Benzodiazepine dependence PTSD Plan: -Patient continues to meet criteria for inpatient psychiatric admission for symptom stabilization and safety. Patient is currently voluntary. -Medications: continue with Zyprexa to 7.5 mg daily at bedtime for mood stabilization/insomnia. Continue with Prolixin by mouth 4 mg twice a day for psychosis/mood stabilization, continue with Trileptal 300 mg twice a day for mood stabilization, continue with trazodone to 100 mg when necessary daily at bedtime. continue with Cogentin 0.5 mg twice a day for EPS prophylaxis. Drywall Boardhanger spoke with patient about long-acting injection for Prolixin however patient would like to think about at this time. -When necessary Ativan and Geodon for agitation/aggression. -NRT -not needed as patient does not smoke. -SW on board for discharge planning. Encouraged the patient to participate in milieu. cinder pit worker awaiting call back from patient's parents for further information and for discharge planning. We'll need to have a family meeting with the parents over the phone to discuss safety concerns if patient is to be discharged back to their house and also monitoring of her medications to prevent overdosing. likely discharge in 1-2 days.
[2020-02-09] MEDS: OLANZapine 2.5 MG TAB PO SCH (20:44)
[2020-02-10] MEDS: LEVOTHYROXINE 75 MCG TAB PO SCH (08:09)
[2020-02-10] MEDS: GABAPENTIN 400 MG CAP PO SCH (08:09)
[2020-02-10] MEDS: BENZTROPINE MESYLATE 0.5 MG TAB PO SCH ×2 (08:09→20:40)
[2020-02-10] MEDS: OXcarbazepine 300 MG TAB PO SCH ×2 (08:10→20:40)
[2020-02-10] MEDS: LEVONORGESTREL ETHIN ESTRADIOL PO SCH (08:10)
--- NOTE | 2020-02-10 09:36 | P.PN ---
Progress Note - Text Progress Note Date: 02/10/20 Interval History: Patient was seen laying down in her bed today and was directable and agreeable to seek to typewriter operator automatic in the office today. Patient appeared to be more irritable today and states that she did not sleep well last night. She states that she is feeling more depressed today and was hearing voices last night when she could not go to sleep telling her to kill herself. She states she is not currently having suicidal thoughts however is feeling depressed. She states that she feels she cannot go to groups as she feels that other patients are "making fun of me because of my bipolar". Patient spoke about needing to sign papers for release of information for her father. She claims that she is eating fairly. At this time patient denies any suicidal or homical ideations, intent or plan. Patient denies any auditory, visual hallucinations. Patient denies any side effects from the medications and has been compliant with meds. Mental Status Exam: General Appearance: Patient appears to be older than stated age is alert, directable, and attempts to be less cooperative today, poor hygiene and grooming. Behavior: Patient is calmly seated without any agitated behavior. Speech: Patient's speech is fluent and nonpressured. monotone and concrete. Mood/Affect: Mood is "depressed", affect is congruent and constricted. Some irritability today. Suicidality/Homicidality: Patient denies having any suicidal or homicidal ideation intent or plan. Perceptions: Patient denies any visual hallucinations and denies any auditory hallucinations Though content/process: concrete, poverty of content. Logical today. Memory and concentration: AOX3, grossly intact for the purposes of this session Judgment and insight: poor Assessment Major depressive disorder severe, with psychotic features versus schizoaffective, bipolar Benzodiazepine dependence PTSD Plan: -Patient continues to meet criteria for inpatient psychiatric admission for symptom stabilization and safety. Patient is currently voluntary. -Medications: Increased Zyprexa to 10 mg daily at bedtime for mood stabilization/insomnia. Decreased Prolixin by mouth 3 mg twice a day for psychosis/mood stabilization, continue with Trileptal 300 mg twice a day for mood stabilization, continue with trazodone to 100 mg when necessary daily at bedtime. continue with Cogentin 0.5 mg twice a day for EPS prophylaxis. Added Prozac 20 mg daily for mood. -When necessary Ativan and Geodon for agitation/aggression. -NRT -not needed as patient does not smoke. -SW on board for discharge planning. Encouraged the patient to participate in milieu. machine lay out worker continuing to try and obtain further collateral information from patient's family. We'll need to have a family meeting with the parents over the phone to discuss safety concerns if patient is to be discharged back to their house and also monitoring of her medications to prevent overdosing. likely discharge in 2-3days.
[2020-02-10] MEDS: FLUoxetine HCL 20 MG CAP PO SCH (09:58)
[2020-02-10] MEDS: OLANZapine 10 MG TAB PO SCH (20:40)
[2020-02-11] MEDS: LEVONORGESTREL ETHIN ESTRADIOL PO SCH (08:13)
[2020-02-11] MEDS: LEVOTHYROXINE 75 MCG TAB PO SCH (08:14)
[2020-02-11] MEDS: OXcarbazepine 300 MG TAB PO SCH ×2 (08:14→20:26)
[2020-02-11] MEDS: FLUoxetine HCL 20 MG CAP PO SCH (08:14)
[2020-02-11] MEDS: GABAPENTIN 400 MG CAP PO SCH (08:14)
[2020-02-11] MEDS: BENZTROPINE MESYLATE 0.5 MG TAB PO SCH ×2 (08:14→20:26)
[2020-02-11 09:28] LABS: African American GFR (CKD) >90 (>60 ml/min/1.73 sqM); Anion Gap 7 mmol/L; Blood Urea Nitrogen 11 mg/dL (7-17); Carbon Dioxide 24 mmol/L (22-30); Chloride 105 mmol/L (98-107); Glucose 108 mg/dL (74-99); Non-African American GFR(CKD) >90 (>60 ml/min/1.73 sqM); Potassium 4.4 mmol/L (3.5-5.1); Sodium 136 mmol/L (137-145)
--- NOTE | 2020-02-11 10:25 | P.PN ---
Progress Note - Text Progress Note Date: 02/11/20 Interval History: Patient was seen sitting in on group today and was directable and agreeable to seek to mortgage loan underwriter in the office today. Patient patient was last irritable today and was more directable and cooperative with mortgage loan underwriter during interview. She states that she is doing well today and denied any overnight complaints. She states that she was able to sleep better last night with the increase in her Zyprexa. She denied any EPS symptoms at this time and states that the Prolixin has been helping her with her voices. She claims that she does not hear any voices at this time. She states that she's been able to go to more groups and has more confidence. She also claimed that she spoke with her father over the phone who states that he is willing to have her back in [place] with him when she gets stable on her medications and discharged. She states that she is doing "better today" and denies any depression or anxiety. She claims that she is eating fairly. At this time patient denies any suicidal or homical ideations, intent or plan. Patient denies any auditory, visual hallucinations. Patient denies any side effects from the medications and has been compliant with meds. Mental Status Exam: General Appearance: Patient appears to be older than stated age is alert, more directable, and cooperative today, improving hygiene and grooming. Behavior: Patient is calmly seated without any agitated behavior. Speech: Patient's speech is fluent and nonpressured. monotone and concrete. Mood/Affect: Mood is "ok", affect is congruent and constricted. Suicidality/Homicidality: Patient denies having any suicidal or homicidal ideation intent or plan. Perceptions: Patient denies any visual hallucinations and denies any auditory hallucinations Though content/process: concrete, poverty of content. Logical today. Memory and concentration: AOX3, grossly intact for the purposes of this session Judgment and insight: Chronically poor, improving mildly Assessment Schizoaffective, depressive type Benzodiazepine dependence PTSD Plan: -Patient continues to meet criteria for inpatient psychiatric admission for symptom stabilization and safety. Patient is currently voluntary. -Medications: Continue with Zyprexa to 10 mg daily at bedtime for mood stabilization/insomnia. Continue with Prolixin by mouth 3 mg twice a day for psychosis/mood stabilization, continue with Trileptal 300 mg twice a day for mood stabilization, continue with trazodone to 100 mg when necessary daily at bedtime. continue with Cogentin 0.5 mg twice a day for EPS prophylaxis. Increased Prozac 40 mg daily for mood/anxiety. -When necessary Ativan and Geodon for agitation/aggression. -NRT -not needed as patient does not smoke. -SW on board for discharge planning. Encouraged the patient to participate in milieu. probation worker spoke with patient's father to gain further collateral. probation worker continuing to work with patient's parents to sort out her living arrangement upon discharge. likely discharge tomorrow.
[2020-02-11] MEDS: OLANZapine 10 MG TAB PO SCH (20:26)
[2020-02-12] MEDS: OXcarbazepine 300 MG TAB PO SCH (08:22)
[2020-02-12] MEDS: LEVOTHYROXINE 75 MCG TAB PO SCH (08:22)
[2020-02-12] MEDS: GABAPENTIN 400 MG CAP PO SCH (08:22)
[2020-02-12] MEDS: BENZTROPINE MESYLATE 0.5 MG TAB PO SCH (08:22)
[2020-02-12] MEDS: LEVONORGESTREL ETHIN ESTRADIOL PO SCH (08:23)
[2020-02-12] MEDS ORDERED: FLUoxetine HCL 20 MG CAP PO SCH (09:00)
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
[2020-02-12 14:11] VITALS: TEMP 97.7
== END 2020-02-12 14:22 | disposition home or self-care (01) | DRG 885 ==
LOC: EC 06:24 → 3MHU 11:50
PROVIDERS: ADMIT Psychiatry & Neurology Psychiatry; ATTEND Psychiatry & Neurology Psychiatry
DX: F25.1 Schizoaffective disorder, depressive type (principal); F13.239 Sedative, hypnotic or anxiolytic dependence with withdrawal, unspecified; E87.1 Hypo-osmolality and hyponatremia; F43.10 Post-traumatic stress disorder, unspecified; G47.00 Insomnia, unspecified; T43.622A Poisoning by amphetamines, intentional self-harm, initial encounter; Z79.890 Hormone replacement therapy; Z79.899 Other long term (current) drug therapy; E03.9 Hypothyroidism, unspecified; E87.6 Hypokalemia; Z91.410 Personal history of adult physical and sexual abuse; Z88.4 Allergy status to anesthetic agent; Z88.8 Allergy status to other drugs, medicaments and biological substances
CPT/HCPCS: 36415; 80048; 80053; 80061; 80306; 80320; 80329; 81025; 83036; 83520; 84443; 85025; 87491; 87591; 93005; 96361; 96374; 99285